=== PATIENT | male | born 1955 | race Caucasian/White ===

== ENCOUNTER 2020-12-06 19:37 | Inpatient (IN) | payer BC, OTHER ==
[~2020-12-06] VITALS: Ht 182.9 cm; Wt 91.6 kg
[2020-12-06 20:40] LABS: Basophils # (auto) 0.1 10 ^3/uL (0-0.2); Basophils % (auto) 1.3 % (0.0-2.0); Eosinophils # (auto) 0.2 10 ^3/uL (0-0.8); Eosinophils % (auto) 4.1 % (0.0-7.0); Hematocrit 45.9 % (41.0-53.0); Hemoglobin 15.8 g/dL (13.5-17.5); Lymphocytes # (auto) 1.6 10 ^3/uL (0.4-5.4); Lymphocytes % (auto) 29.3 % (10.0-50.0); Mean Corpuscular Hgb Conc. 34.3 g/dL (32.0-36.0); Mean Corpuscular Volume 90.4 fL (80.0-100.0); Monocytes # (auto) 0.4 10 ^3/uL (0-1.3); Monocytes % (auto) 7.6 % (0.0-12.0); Neutrophils # (auto) 3.2 10 ^3/uL (1.6-8.6); Neutrophils % (auto) 57.7 % (37.0-80.0); Nucleated Red Blood Cells % 0.1 %; Red Blood Cells 5.07 10^6/uL (4.5-5.90); Red Cell Distribution Width 13.1 % (11.8-14.3); White Blood Cell 5.5 10^3/uL (4.4-10.8)
[2020-12-06 20:53] LABS: Albumin 3.9 g/dL (3.4-5.0); Anion Gap 8 (5-15); Blood Urea Nitrogen 14 mg/dL (7-18); Calcium 9.2 mg/dL (8.5-10.1); Carbon Dioxide 27 mmol/L (21-32); Chloride 106 mmol/L (98-107); Glucose 107 mg/dL (74-106); Potassium 4.2 mmol/L (3.5-5.1); Sodium 141 mmol/L (136-145)
[2020-12-06 20:59] LABS: Alanine Aminotransferase 36 U/L (16-61); Alkaline Phosphatase 62 U/L (45-117); Aspartate Aminotransferase 18 U/L (15-37); BUN/Creatinine Ratio 11.6; Bilirubin, Total 0.5 mg/dL (0.2-1.0); GFR African American 77 mL/min; GFR Non-African American 64 mL/min; Total Protein 7.2 g/dL (6.4-8.2)
[2020-12-06] MEDS ORDERED: ASPirin 81 mg TAB PO ONE (21:45)
[2020-12-06] MEDS ORDERED: LORazepam 2MG/ML-1ML VIAL IV PRN (22:30)
[2020-12-06 22:52] LABS: Cholesterol 196 mg/dL (< 200); HDL Cholesterol 54 mg/dL (40-59); LDL Cholesterol 113 mg/dL (< 100); Triglycerides 132 mg/dL (< 150)
[2020-12-07] MEDS ORDERED: ACETAMINOPHEN 325 MG TAB PO PRN (02:45)
[2020-12-07] MEDS ORDERED: ONDANSETRON HCL 4 MG/2 ML VIAL IV PRN (02:45)
[2020-12-07] MEDS: ATORVASTATIN 20 MG TAB PO SCH (10:35)
[2020-12-07] MEDS: PANTOPRAZOLE 40 MG TAB PO SCH (10:35)
[2020-12-07] MEDS: ASPirin 81 mg TAB PO SCH (10:35)
[2020-12-07] MEDS: ENOXAPARIN SOD 40 MG/0.4 ML SYRINGE SC SCH (10:36)
[2020-12-07 19:58] VITALS: BP 145/79
[2020-12-07] MEDS ORDERED: OMEP20TA PO (20:34)
[2020-12-07 21:31] LABS: Alcohol, Urine < 3.0 mg/dL (0-10); Amphetamine Screen, Urine NEGATIVE (NEGATIVE); Barbiturate Scree,Urine NEGATIVE (NEGATIVE); Benzodiazephine Screen, Urine NEGATIVE (NEGATIVE); Cocaine Screen, Urine NEGATIVE (NEGATIVE); Opiate Scree,Urine NEGATIVE (NEGATIVE); Phencyclidine Screen, Urine NEGATIVE (NEGATIVE)
[2020-12-07 21:40] LABS: Cannabinoid Screen, Urine NEGATIVE (NEGATIVE)
[2020-12-07 22:00] VITALS: BP 146/90
[2020-12-08 05:00] VITALS: BP 140/82
[2020-12-08 05:49] LABS: Basophils # (auto) 0 10 ^3/uL (0-0.2); Basophils % (auto) 0.8 % (0.0-2.0); Eosinophils # (auto) 0.2 10 ^3/uL (0-0.8); Eosinophils % (auto) 5.1 % (0.0-7.0); Hematocrit 47.1 % (41.0-53.0); Hemoglobin 16.3 g/dL (13.5-17.5); Lymphocytes # (auto) 1.5 10 ^3/uL (0.4-5.4); Mean Corpuscular Hemoglobin 31.1 pg (28.0-32.0); Mean Corpuscular Hgb Conc. 34.5 g/dL (32.0-36.0); Mean Corpuscular Volume 90.1 fL (80.0-100.0); Monocytes # (auto) 0.4 10 ^3/uL (0-1.3); Monocytes % (auto) 8.3 % (0.0-12.0); Neutrophils # (auto) 2.8 10 ^3/uL (1.6-8.6); Neutrophils % (auto) 55.8 % (37.0-80.0); Nucleated Red Blood Cells % 0.1 %; Red Blood Cells 5.23 10^6/uL (4.5-5.90); White Blood Cell 4.9 10^3/uL (4.4-10.8)
[2020-12-08 06:24] LABS: BUN/Creatinine Ratio 11.7; Potassium 4.3 mmol/L (3.5-5.1)
[2020-12-08 08:00] VITALS: BP 142/83
[2020-12-08 09:00] VITALS: BP 142/83
[2020-12-08] MEDS: ATORVASTATIN 20 MG TAB PO SCH (09:58)
[2020-12-08] MEDS: ASPirin 81 mg TAB PO SCH (09:58)
[2020-12-08] MEDS: PANTOPRAZOLE 40 MG TAB PO SCH (09:59)
[2020-12-08] MEDS ORDERED: CLOPIDOGREL BISULFATE 75 MG TAB PO SCH (10:00)
[2020-12-08] MEDS: ENOXAPARIN SOD 40 MG/0.4 ML SYRINGE SC SCH (10:00)
[2020-12-08 12:11] VITALS: BP 142/83
[2020-12-08 13:00] VITALS: BP 143/85
[2020-12-08 14:30] VITALS: BP 143/85
== END 2020-12-08 13:30 | disposition home or self-care (01) | DRG 101 ==
LOC: ER 19:39 → OVERFLOW 12-07 02:39 → WEST WING 12-07 19:30
PROVIDERS: ADMIT Nurse Practitioner; ATTEND Family Medicine
DX: G40.89 Other seizures (principal); G45.9 Transient cerebral ischemic attack, unspecified; E78.00 Pure hypercholesterolemia, unspecified; F17.200 Nicotine dependence, unspecified, uncomplicated; G47.10 Hypersomnia, unspecified; Z79.82 Long term (current) use of aspirin; Z86.73 Personal history of transient ischemic attack (TIA), and cerebral infarction without residual deficits; Z88.2 Allergy status to sulfonamides; Z20.822 Contact with and (suspected) exposure to COVID-19
CPT/HCPCS: 36415; 70450; 70545; 70551; 71045; 80048; 80053; 80061; 80307; 82962; 83090; 84484; 85025; 87426; 93005; 93306; 93886; 95819; 96372; G0378

== ENCOUNTER 2021-10-26 14:25 | Emergency (ER) | payer BC ==
[~2021-10-26] VITALS: Ht 182.9 cm; Wt 87.7 kg
[~2021-10-26 14:25] MED LIST: OMEP20TA PO
[2021-10-26 16:08] LABS: Urine Bacteria NONE SEEN /hpf (None Seen); Urine Blood TRACE /uL (Negative); Urine Specific Gravity 1.018 (1.001-1.035); Urine WBC 1 /hpf (0 - 3)
[2021-10-26] MEDS ORDERED: TAMSULOSIN HYDROCHLORIDE 0.4 MG CAP PO ONE (17:45)
[2021-10-26] MEDS ORDERED: KETOROLAC TROMETH 60MG/2ML VIAL IM ONE (17:45)
[2021-10-26] MEDS ORDERED: IBUP800T27 PO (17:58)
[2021-10-26] MEDS ORDERED: TAM04C PO (17:58)
[2021-10-26 18:18] VITALS: BP 128/78
== END 2021-10-26 18:25 | disposition home or self-care (01) ==
LOC: ER 14:25
DX: N20.0 Calculus of kidney (principal); K40.90 Unilateral inguinal hernia, without obstruction or gangrene, not specified as recurrent; Z88.2 Allergy status to sulfonamides
CPT/HCPCS: 74176; 81001; 93005; 96372; 99285; J1885